=== PATIENT | female | born 1940 | race Caucasian/White ===

== ENCOUNTER → 2020-05-07 | Outpatient (CLI) | payer MEDICARE ==
[2020-05-07 15:30] LABS: HCT 35.8 % (34.0-46.0); Hypochromasia Moderate; MCH 28.9 pg (25.0-35.0); MCHC 30.6 g/dL (31.0-37.0); MCV 94.3 fL (80.0-100.0); Mean Platelet Volume 8.4; Platelet Count 208 k/uL (150-450); RBC 3.79 m/uL (3.80-5.40); RDW 15.6 % (11.5-15.5); WBC 6.9 k/uL (3.8-10.6)
[2020-05-08 00:24] LABS: African American GFR (CKD) 44.6 (60.0-200.0); Anion Gap 4.2 mmol/L (4.00-12.00); BUN/Creat Ratio 29.23 Ratio (12.00-20.00); Calcium 8.5 mg/dL (8.7-10.3); Carbon Dioxide 31.8 mmol/L (21.6-31.8); Non-African American GFR(CKD) 38.4 (60.0-200.0); Potassium 5.7 mmol/L (3.5-5.5)
== END | disposition home or self-care (01) ==
LOC: LABWHC1 14:53
PROVIDERS: ATTEND Internal Medicine Interventional Cardiology
DX: I25.10 Atherosclerotic heart disease of native coronary artery without angina pectoris (principal)
CPT/HCPCS: 36415; 80048; 85027

== ENCOUNTER 2020-05-26 07:00 | Day surgery (SDC) | payer MEDICARE ==
[2020-05-21 11:07] VITALS: BMI 23.4
[~2020-05-26 07:00] MED LIST: ALPRAZolam 0.25 MG TAB PO PRN; ALPRAZolam 0.5 MG TAB PO PRN; ASPIRIN 325 MG TAB PO STA; NITROGLYCERIN SL TABS 0.4 MG TAB SUBLINGUAL PRN; SODIUM CHLORIDE 0.9% 1,000 ML in EMPTY BAG 1 BAG IV ONE
[2020-05-26] MEDS ORDERED: SODIUM CHLORIDE 0.9% 1,000 ML IV ONE (07:41)
[2020-05-26 07:58] VITALS: RESP 16; TEMP 97.8
[2020-05-26] MEDS ORDERED: LIDOCAINE 1% INJ 10MG/ML (20 ML MDV) ONE (10:11)
[2020-05-26] MEDS ORDERED: NITROGLYCERIN SL TABS 0.4 MG TAB SUBLINGUAL ONE ×6 (10:35→11:22)
[2020-05-26] MEDS ORDERED: MIDAZOLAM 2 MG/2 ML VIAL IVP ONE (10:38)
[2020-05-26] MEDS ORDERED: LIDOCAINE 1% INJ 10MG/ML (20 ML MDV) SQ ONE (10:38)
[2020-05-26] MEDS ORDERED: IOPAMIDOL-370 100ML BTL INJ ONE (11:03)
[2020-05-26] MEDS ORDERED: NITROGLYCERIN 1000MCG/10ML SYRINGE INTRACORON ONE (11:07)
[2020-05-26] MEDS ORDERED: IOPAMIDOL-370 50ML BTL INJ ONE (11:07)
[2020-05-26] MEDS ORDERED: amLODIPine 5 MG TAB ONE (11:20)
[2020-05-26] MEDS ORDERED: amLODIPine 5 MG TAB PO ONE (11:23)
[2020-05-26] MEDS ORDERED: SODIUM CHLORIDE 0.9% 1,000 ML IV SCH (11:30)
[2020-05-26] MEDS ORDERED: ACETAMINOPHEN TAB 325 MG TAB ONE (12:53)
[2020-05-26] MEDS ORDERED: LABETALOL 5 MG/ML VIAL MDV IVP STA (13:06)
[2020-05-26] MEDS ORDERED: hydrALAZINE HCL 50 MG TAB PO SCH (13:30)
[2020-05-26 18:06] VITALS: BP 151/76; PULSE 53
--- NOTE | 2020-05-27 01:29 | CC ---
CARDIAC CATHETERIZATION REPORT DATE OF SERVICE: 05/26/2020 PROCEDURE: Left heart catheterization, coronary angiography, selective injection of vein grafts and CHESTER. PERFORMED BY: Dr. Alba Huynh. Moderate conscious sedation time was 28 minutes. The patient was administered Versed. Oxygen saturation, hemodynamics and EKG were monitored closely. CLINICAL INFORMATION: Mrs. Cyndy Ravi is an 80-year-old lady with a history of type 2 diabetes, hypertension, hyperlipidemia, CAD and previous bypass surgery that was performed in August 2012. She had a CHESTER to LAD, vein graft was placed sequentially to the ramus intermedius and terminal circumflex branch, another vein graft was placed to the RCA and a distal RCA PLV branch. A total of 5 grafts but 2 venous conduits were used. This patient has been doing fairly well, but recently had a significantly abnormal stress test with a moderate-sized inferior wall defect with hypokinesia which was new. This was more of an inferolateral defect. She was advised coronary angiography after due discussion regarding risks, benefits, and options. Patient was hydrated and brought in for the procedure. PROCEDURE NOTE: Under local anesthesia and strict aseptic precautions, a 6-Ind[place]ian introducer was placed in the right femoral artery. Using a JL3.5 catheter, I performed selective coronary angiography of the left coronary artery. A Mg catheter was used to perform selective coronary angiography of the vein graft to the RCA and PLV branch of RCA, a CHESTER injection was also performed with a Mg catheter. I took an AR2 catheter to perform selective injection of the [place] RCA and also vein graft to the ramus intermedius and circumflex distal graft. The Mg catheter was used to check LV pressures but LV gram was not performed. The sheath was taken out and manual compression used to secure hemostasis and she was sent to the room in stable condition. Results were discussed with the patient and her daughter. CARDIAC CATHETERIZATION FINDINGS: The left ventricular end-diastolic pressure was 16 mmHg without any gradient across aortic valve. CORONARY ANGIOGRAPHY FINDINGS: LEFT MAIN CORONARY ARTERY: Short patent vessel. Mild to moderate calcification distally has 80% stenosis. Bifurcates into LAD and circumflex. LEFT ANTERIOR DESCENDING CORONARY ARTERY: This vessel is totally occluded in the midportion gives off the diagonal and septal branches. Some opacification is noted in the LAD system with mild diffuse disease. LEFT POSTERIOR CIRCUMFLEX CORONARY ARTERY: This gives off a first obtuse marginal and a small circumflex is noted. The ramus intermedius and terminal circumflex are grafted. The proximal portion of the circumflex and distal left main have fairly significant disease. RIGHT CORONARY ARTERY: This is totally occluded, seen with limited antegrade flow. SAPHENOUS VEIN GRAFT TO THE RCA AND PDA/PLV BRANCH OF RCA: This is a sequential graft. The proximal anastomosis is to the proximal RCA and the distal anastomosis to PDA branch. In the report, it states PLV but it appears to be the PDA branch. This graft is widely patent in its entirety. Mid RCA has some disease, but the PDA is well opacified. No significant disease noted. SAPHENOUS VEIN GRAFT TO THE RAMUS AND DISTAL CIRCUMFLEX: This graft is patent at its origin and also has only one insertion site into the ramus intermedius. The terminal circumflex portion appears to be totally occluded and I cannot see the attachment. LEFT INTERNAL MAMMARY ARTERY GRAFT TO LEFT ANTERIOR DESCENDING CORONARY ARTERY: This graft is widely patent and attaches to the LAD, but beyond the insertion of the LAD, there is some 40% to 50% disease within the LAD. No critical lesion is noted. LEFT VENTRICULOGRAM: Left ventriculogram was not performed. The left ventricular end-diastolic pressure was 16 mmHg and there was no gradient across aortic valve. FINAL IMPRESSION: This patient has 80% distal left main also involving the proximal circumflex. Circumflex has at least 2 branches that supply a fair amount of myocardium. Left anterior descending coronary artery is a limited circulation. The CHESTER to LAD is patent with some 40% to 50% disease within the LAD after insertion. The vein graft to the RCA and distal PLV/PDA branch is widely patent. The vein graft to the ramus is patent but the second attachment to the terminal circumflex is not seen, presumably occluded. The left ventricular end-diastolic pressures are elevated. No gradient across aortic valve. RECOMMENDATION: I am recommending that we will pursue medical therapy for now and I will discuss different options with the patient when I see her in the office. I am considering intervention of the distal left main and circumflex because this inferolateral territory is where ischemia was noted. However, medical therapy certainly is an option for this lady. We will discuss different options as an outpatient but for now we will pursue medical therapy and discharge her. Blood pressure was somewhat elevated and this was later on controlled with intravenous labetalol and patient will be discharged home later on today if she remains stable. MMODL / IJN: [id number] /
== END 2020-05-26 18:05 | disposition home or self-care (01) ==
LOC: CATHCVL 07:00
PROVIDERS: ATTEND Internal Medicine Interventional Cardiology
DX: I25.110 Atherosclerotic heart disease of native coronary artery with unstable angina pectoris (principal); I10 Essential (primary) hypertension; I27.21 Secondary pulmonary arterial hypertension; E11.9 Type 2 diabetes mellitus without complications; E78.00 Pure hypercholesterolemia, unspecified; E78.5 Hyperlipidemia, unspecified; Z95.1 Presence of aortocoronary bypass graft; Z79.82 Long term (current) use of aspirin; Z79.890 Hormone replacement therapy; Z79.899 Other long term (current) drug therapy; Z88.8 Allergy status to other drugs, medicaments and biological substances; Z72.0 Tobacco use
CPT/HCPCS: 93459; 84132; C1769 ×4; C1894; J2250; J2001; Q9967 ×2